=== PATIENT | female | born 1995 | race Caucasian/White ===

== ENCOUNTER 2017-02-12 21:15 | Emergency (ER) | payer MEDICAID ==
[~2017-02-12] VITALS: Ht 165.1 cm; Wt 113.4 kg
[2017-02-12 21:16] VITALS: BP 129/84
[2017-02-12] MEDS ORDERED: IBUPROFEN 200 MG TABLET ONE (21:48)
[2017-02-12] MEDS ORDERED: HYDROcodone/APAP 5/325 TABLET ONE (21:48)
[2017-02-12] MEDS ORDERED: ONDANSETRON ODT 4 MG ONE (21:48)
[2017-02-12] MEDS ORDERED: IBUPROFEN 200 MG TABLET PO ONE (22:00)
[2017-02-12] MEDS ORDERED: ONDANSETRON ODT 4 MG PO ONE (22:00)
[2017-02-12] MEDS ORDERED: HYDROcodone/APAP 5/325 TABLET PO ONE (22:00)
== END 2017-02-12 22:54 | disposition home or self-care (01) ==
LOC: ED 22:37
DX: S93.621A Sprain of tarsometatarsal ligament of right foot, initial encounter (principal); X50.9XXA Other and unspecified overexertion or strenuous movements or postures, initial encounter; Y93.67 Activity, basketball; Y99.8 Other external cause status; Y92.328 Other athletic field as the place of occurrence of the external cause
CPT/HCPCS: 73630; 99284; Q0162

== ENCOUNTER 2017-03-04 01:46 | Emergency (ER) | payer SELFPAY ==
[~2017-03-04] VITALS: Ht 162.6 cm; Wt 113.8 kg
[2017-03-04 01:49] VITALS: BP 122/80
[2017-03-04] MEDS ORDERED: LIDOCAINE 1%, 20ML ONE (02:36)
[2017-03-04] MEDS ORDERED: LIDOCAINE 1%, 20ML INFIL ONE (03:00)
== END 2017-03-04 04:07 | disposition home or self-care (01) ==
LOC: ED 04:05
DX: S61.412A Laceration without foreign body of left hand, initial encounter (principal); W25.XXXA Contact with sharp glass, initial encounter; Y93.89 Activity, other specified; Y92.009 Unspecified place in unspecified non-institutional (private) residence as the place of occurrence of the external cause; Y99.9 Unspecified external cause status
CPT/HCPCS: 12032; 73130; 99284; J3490

== ENCOUNTER 2017-05-24 16:58 | Emergency (ER) | payer OTHER ==
[~2017-05-24] VITALS: Ht 165.1 cm; Wt 114.7 kg
[2017-05-24] MEDS ORDERED: ONDANSETRON 2MG/ML, 2ML IVPush ONE (17:30)
[2017-05-24] MEDS ORDERED: SODIUM CHLORIDE 0.9% 1,000ML IVBOLUS ONE (17:30)
[2017-05-24] MEDS ORDERED: MORPHINE SULFATE 4 MG/ML, 1ML IVPush PRN (17:30)
[2017-05-24 17:34] LABS: HEMATOCRIT 43.7 % (34.6-47.8); HEMOGLOBIN 14.7 g/dL (11.7-16.4); WHITE BLOOD COUNT 7.9 x10^3/uL (3.4-10)
[2017-05-24 17:48] LABS: ASPARTATE AMINO TRANSFERASE 11 U/L (15-37); BLOOD UREA NITROGEN 13 mg/dL (7-18)
[2017-05-24] MEDS ORDERED: HYDROcodone/APAP 5/325 TABLET PO ONE (20:00)
[2017-05-24] MEDS ORDERED: DIAZEPAM 5 MG TABLET PO ONE (20:00)
[2017-05-24] MEDS ORDERED: ONDANSETRON ODT 4 MG PO ONE (20:00)
[2017-05-24] MEDS ORDERED: DIAZEPAM 5 MG TABLET ONE (20:06)
[2017-05-24] MEDS ORDERED: HYDROcodone/APAP 5/325 TABLET ONE (20:06)
[2017-05-24] MEDS ORDERED: ONDANSETRON ODT 4 MG ONE (20:06)
[2017-05-24 20:57] VITALS: BP 106/53
== END 2017-05-24 21:00 | disposition home or self-care (01) ==
LOC: ED 20:57
DX: S16.1XXA Strain of muscle, fascia and tendon at neck level, initial encounter (principal); M54.5 Low back pain; R51 Headache; V49.59XA Passenger injured in collision with other motor vehicles in traffic accident, initial encounter; Y93.89 Activity, other specified; Y92.488 Other paved roadways as the place of occurrence of the external cause; Y99.8 Other external cause status
CPT/HCPCS: 36415; 70450; 71101; 72110; 72125; 80053; 85025; 85730; 99285; Q0162

== ENCOUNTER 2017-12-29 10:28 | Emergency (ER) | payer SELFPAY ==
[~2017-12-29] VITALS: Ht 165.1 cm; Wt 117.2 kg
[2017-12-29 10:30] VITALS: BP 101/72
[2017-12-29] MEDS ORDERED: LIDOCAINE-MPF 1%, 5ML INFIL ONE (11:00)
[2017-12-29] MEDS ORDERED: LIDOCAINE-MPF 1%, 5ML ONE (11:05)
[2017-12-29] MEDS ORDERED: BACITRACIN ZINC OINT 500U/GM, 0.9 GM ONE (11:42)
== END 2017-12-29 11:54 | disposition home or self-care (01) ==
LOC: ED 11:30
DX: S61.011A Laceration without foreign body of right thumb without damage to nail, initial encounter (principal); F17.200 Nicotine dependence, unspecified, uncomplicated; W26.0XXA Contact with knife, initial encounter; Y93.89 Activity, other specified; Y92.89 Other specified places as the place of occurrence of the external cause; Y99.8 Other external cause status
CPT/HCPCS: 12001